=== PATIENT | female | born 1965 | race Caucasian/White ===

== ENCOUNTER 2023-10-14 06:47 | Day surgery (SDC) | payer OTHER ==
[~2023-10-14] VITALS: Ht 152.4 cm; Wt 83.5 kg
[2023-10-14] MEDS ORDERED: LIDOCAINE 2% 100 MG/5 ML UJET TP ONE (08:04)
[2023-10-14] MEDS ORDERED: fentaNYL citrate 0.05 MG/ML VIAL ONE (08:04)
[2023-10-14] MEDS: fentaNYL citrate 0.05 MG/ML VIAL IVP ONE (08:37)
== END 2023-10-14 09:28 | disposition home or self-care (01) ==
LOC: MDS 06:47 → MMU 06:48 → MDS 09:28
PROVIDERS: ATTEND Internal Medicine Gastroenterology
DX: Z12.11 Encounter for screening for malignant neoplasm of colon (principal); K64.4 Residual hemorrhoidal skin tags; E11.9 Type 2 diabetes mellitus without complications; E78.00 Pure hypercholesterolemia, unspecified; Z98.890 Other specified postprocedural states; Z79.899 Other long term (current) drug therapy
CPT/HCPCS: 45378; 82948; J3010